=== PATIENT | male | born 1995 | race African-American/Black ===

== ENCOUNTER 2018-11-20 03:02 | Observation (INO) | payer BC ==
[2018-11-20 04:37] LABS: Bilirubin Negative (Negative); Blood, Urine Negative (Negative); Clarity Clear (Clear); Glucose, Urine (Dipstick) Normal (Negative); Leukocyte Negative Leu/uL (Negative); Nitrite Negative (Negative); Protein, Urine (Dipstick) 20 mg/dL (Neg-Trace); Urobilinogen Normal mg/dL (Less than 2)
[2018-11-20 05:05] VITALS: BMI 31.8
[2018-11-20] MEDS: Sodium Chloride 0.9% 1,000 ML IV SCH ×4 (05:30→17:02)
[2018-11-20] MEDS ORDERED: Bisacodyl 5 MG TAB PO PRN (11:15)
[2018-11-20] MEDS ORDERED: Acetaminophen 325 MG TAB PO PRN (11:15)
[2018-11-20] MEDS ORDERED: Ondansetron PF 4 MG/2 ML Vial IVP PRN (11:15)
--- NOTE | 2018-11-20 12:36 | HP ---
PRIMARY CARE PROVIDER: Oziel Curry MD CHIEF COMPLAINT: Nausea and vomiting. HISTORY OF PRESENT ILLNESS: Mr. Davila is a pleasant 23-year-old gentleman, who was seen at [facility] on November 20, 2018, following transfer from emergency room at [place]. He reports that he was working outside for approximately 9 hours yesterday. It was a very hot day. He started having nausea and vomiting. He denies any chest pain. He reports generalized weakness. He reports chills, but no fevers. He also reports upper abdominal cramping since about 9:00 p.m. yesterday. He reports vomiting 12 times. At [place], he was diagnosed with rhabdomyolysis and transferred to [facility] for further management. REVIEW OF SYSTEMS: All other systems reviewed and found to be negative. PAST MEDICAL HISTORY: Asthma and abdominal hernia. PAST SURGICAL HISTORY: Hernia repair at age 12. SOCIAL HISTORY: The patient reports marijuana use. He denies tobacco use or alcohol use. FAMILY HISTORY: No family history of coronary artery disease. ALLERGIES: SULFA. CURRENT MEDICATIONS: None. PHYSICAL EXAMINATION: GENERAL: On examination, Mr. Davila is awake and alert, not in acute distress. VITAL SIGNS: Blood pressure is 134/65, pulse 65, respiratory rate 16, and oxygen saturation 99% on room air. He is afebrile. EYES: No scleral icterus. No conjunctival pallor. ENT: Dry mucosal membranes. No oropharyngeal erythema or exudates. NECK: Supple, nontender. Trachea is midline. RESPIRATORY: Accessory muscles of breathing are not active. Chest wall movements are symmetric bilaterally. Lungs are clear to auscultation without wheeze, rhonchi, or crepitations. CARDIOVASCULAR: S1 and S2 are heard, regular. Peripheral pulses palpable. No carotid bruit. No pericardial rub. ABDOMEN: Soft, nontender. Bowel sounds heard. No hepatomegaly. No splenomegaly. NEUROLOGIC: Cranial nerves 2 through 12 intact. Deep tendon reflexes 2+. MUSCULOSKELETAL: Power is 5/5 in all 4 extremities. SKIN: No rashes or subcutaneous nodules. LYMPHATIC: No cervical lymphadenopathy. PSYCHIATRIC: Normal mood, normal affect. The patient is oriented to person, place, and time. BODY HABITUS: Obese, with a BMI of 31.9. LABORATORY DATA: Mr. Davila' labs and investigations were reviewed. He has an unremarkable CBC, normal sodium, normal potassium, decreased carbon dioxide of 20, elevated anion gap of 25, elevated blood urea nitrogen of 30, elevated creatinine of 2.57, normal lactic acid, elevated magnesium of 2.9, elevated AST of 45, normal ALT, elevated CK of 1835, and normal lipase. Urinalysis is positive for ketones. ASSESSMENT AND PLAN: Mr. Davila is a pleasant 23-year-old gentleman, who was seen at [facility] on November 20, 2018. His problem list includes: 1. Rhabdomyolysis: Mr. Davila is presenting with rhabdomyolysis, working outside on a hot day for 9 hours. He will be admitted to the hospital for further management. He will be treated with intravenous fluids. CK level will be rechecked. 2. Acute kidney injury: Most likely secondary to rhabdomyolysis. We will hydrate the patient and recheck creatinine level. 3. Elevated AST: Most likely secondary to rhabdomyolysis. We will recheck AST level after hydration. 4. Marijuana use: The patient has been counseled regarding marijuana cessation. Many thanks for allowing me to participate in your patient's care. Please feel free to contact me with any questions or concerns. LEVEL OF RISK: Moderate. LEVEL OF COMPLEXITY: Moderate. Job ID: [id number]
[2018-11-20 14:14] LABS: #Basophils 0.1 thou/uL (0.0-0.2); #Eosinphils 0.2 thou/uL (0.0-0.7); #Lymphocytes 2.6 thou/uL (1.20-3.40); #Monocytes 0.6 thou/uL (0.11-0.59); #Neutrophils 3.5 thou/uL (1.40-6.50); %Basophils 1.1 % (0.0-1.0); %Eosinophils 2.8 % (0.0-10.0); %Lymphocytes 37.1 % (21.0-51.0); %Monocytes 8.5 % (0.0-10.0); %Neutrophils 50.6 % (42.0-75.0); Hemoglobin 14.4 g/dL (14.0-18.0); Mean Corpuscular HGB CONC 32.3 g/dL (32.0-36.0); Mean Corpuscular Hemoglobin 29.4 pg (27.0-31.0); Mean Corpuscular Volume 90.9 fL (78.0-98.0); Mean Platelet Volume 9.3 fL (7.4-10.4); Platelet Count 175 thou/uL (130-400); RBC Distribution Width 11.9 % (11.5-14.5)
[2018-11-20 14:35] LABS: Anion Gap 12 mmol/L (10-20); BUN (Urea Nitrogen) 17 mg/dL (8.9-20.6); CK (CPK) 2312 U/L (30-200); Calc. Creatinine Clearance 145 mL/min (70-130); Calcium 9.2 mg/dL (7.8-10.44); Carbon Dioxide 22 mmol/L (22-29); Chloride 105 mmol/L (98-107); Estimated GFR-MDRD 83; Glucose 98 mg/dL (70-105); Potassium 3.7 mmol/L (3.5-5.1); Sodium 135 mmol/L (136-145)
[2018-11-21] MEDS: Sodium Chloride 0.9% 1,000 ML IV SCH ×2 (01:20→07:51)
[2018-11-21 06:11] LABS: ALT (SGPT) 27 U/L (8-55); AST (SGOT) 36 U/L (5-34); Albumin 3.6 g/dL (3.5-5.0); Alkaline Phosphatase 46 U/L (40-150); Anion Gap 11 mmol/L (10-20); BUN (Urea Nitrogen) 10 mg/dL (8.9-20.6); Bilirubin, Total 0.8 mg/dL (0.2-1.2); CK (CPK) 1886 U/L (30-200); Calc. Creatinine Clearance 196 mL/min (70-130); Calcium 8.5 mg/dL (7.8-10.44); Carbon Dioxide 24 mmol/L (22-29); Chloride 108 mmol/L (98-107); Estimated GFR-MDRD Greater than 90; Globulin 2.1 g/dL (2.4-3.5); Glucose 88 mg/dL (70-105); Potassium 3.9 mmol/L (3.5-5.1); Protein, Total 5.7 g/dL (6.0-8.3); Sodium 139 mmol/L (136-145)
[2018-11-21 06:18] LABS: Band 1 % (5-11); Eosinophils 6 % (0-10); Hemoglobin 13.2 g/dL (14.0-18.0); Lymphocytes 48 % (21-51); MDiff Complete? YES; Mean Corpuscular Hemoglobin 29.4 pg (27.0-31.0); Mean Corpuscular Volume 91.8 fL (78.0-98.0); Mean Platelet Volume 9.5 fL (7.4-10.4); Monocytes 7 % (0-10); Neutrophil 38 % (42-75); Platelet Count 138 thou/uL (130-400); RBC Distribution Width 11.9 % (11.5-14.5); Red Blood Cell (RBC) Count 4.51 mill/uL (4.70-6.10); White Blood Cell (WBC) Count 4.4 thou/uL (4.8-10.8)
[2018-11-21] MEDS ORDERED: Enoxaparin Sodium 40 MG/0.4 ML SYRINGE SC SCH (09:00)
[2018-11-21 12:33] VITALS: BP 138/80; TEMP 98.4
--- NOTE | 2018-11-22 12:46 | DIS ---
DATE OF ADMISSION: 11/20/2018 DATE OF DISCHARGE: 11/21/2018 DISPOSITION: Discharge disposition is to home. PRIMARY DISCHARGE DIAGNOSES: 1. Rhabdomyolysis, resolving. 2. Elevated LFT, secondary to rhabdomyolysis. 3. Acute kidney injury, due to dehydration, resolved. PROCEDURES DONE DURING HOSPITALIZATION: H and H 13 and 41, platelet count 138, MCV 91. Initial BUN and creatinine were 17 and 1.3, discharge numbers of 10 and 0.9. Initial CK levels 2312. Discharge day CK level is 1886. Serum bicarb on the day of discharge 24. DISCHARGE MEDICATIONS: None. DISCHARGE PLAN: The patient is to follow up with primary care physician in 1 week. BRIEF COURSE DURING HOSPITALIZATION: The patient initially came in with complaints of nausea and vomiting and had elevated CK levels along with AST levels. He had mild acute kidney injury. The patient was dehydrated. He was gently hydrated during his stay. His renal function is back to normal. The patient's rhabdomyolysis is resolving. He is tolerating oral solid diet. He wants to go home. He was advised to continue drinking at least 3 L of free water with no soda. The patient agrees to above. He lives with his parents. The parents were in the room when I counseled him regarding fluid intake and advised him to come to the nearest emergency room if his urine color were to change or he develops similar symptoms on admission as before. He is hemodynamically stable and will be shortly discharged to home. Please note that I have seen and examined the patient on the day of discharge. Job ID: [id number]
== END 2018-11-21 12:38 | disposition home or self-care (01) ==
LOC: ERS 03:02 → T4-B 03:30
PROVIDERS: ADMIT Hospitalist; ATTEND Hospitalist
DX: M62.82 Rhabdomyolysis (principal); J45.909 Unspecified asthma, uncomplicated; N17.9 Acute kidney failure, unspecified; E86.0 Dehydration; Z88.2 Allergy status to sulfonamides
CPT/HCPCS: 36415; 80053; 81003; 82550; 85025; 96360; 96361; 96372; 99285; G0378; J1650